=== PATIENT | male | born 2000 | race Hispanic/Latino ===

== ENCOUNTER 2022-10-25 20:32 | Emergency (ER) | payer MEDICAID ==
[~2022-10-25] VITALS: Ht 172.7 cm; Wt 84.8 kg
[2022-10-25 21:21] VITALS: BP 119/64
[2022-10-25] MEDS ORDERED: L.E.T. GEL 3ML SYG TP ONE (22:30)
[2022-10-25] MEDS ORDERED: IBUPROFEN 600 MG TABLET PO ONE (22:30)
[2022-10-25] MEDS ORDERED: BACI30OI6 TP (23:50)
[2022-10-25] MEDS ORDERED: BACITRACIN 1 EACH PACKET TP ONE (23:59)
[2022-10-26] MEDS ORDERED: TETANUS/DIPHTHERIA TOXOID [ADULT] 0.5 ML VIAL IM ONE ×3 (00:01→00:30)
== END 2022-10-26 00:19 | disposition home or self-care (01) ==
LOC: EDH 20:32
DX: S71.112A Laceration without foreign body, left thigh, initial encounter (principal); W11.XXXA Fall on and from ladder, initial encounter; Y93.89 Activity, other specified; Y92.89 Other specified places as the place of occurrence of the external cause; Y99.8 Other external cause status
CPT/HCPCS: 12004; 73552; 73562; 73590; 73610; 90471; 90714

== ENCOUNTER 2022-11-08 20:18 | Emergency (ER) | payer MEDICAID ==
[~2022-11-08] VITALS: Ht 162.6 cm; Wt 90.3 kg
[~2022-11-08 20:18] MED LIST: BACI30OI6 TP
[2022-11-08 21:54] VITALS: BP 119/75
== END 2022-11-08 21:54 | disposition home or self-care (01) ==
LOC: EDH 20:18
DX: S71.112D Laceration without foreign body, left thigh, subsequent encounter (principal); X58.XXXD Exposure to other specified factors, subsequent encounter
CPT/HCPCS: 99281